=== PATIENT | female | born 1995 | race Caucasian/White ===

== ENCOUNTER 2017-02-02 17:29 | Emergency (ER) | payer MEDICAID, OTHER ==
[2017-01-01 22:00] VITALS: BMI 24.6
--- NOTE | 2017-02-02 20:12 | OBHP ---
Datetime: 02/02/2017 18:46 IP Adm Impression: , intrauterine IP Chief Complaint Other: dizziness, palpatations IP Admit Plan: Discharge home Admit Comment, IP Provider: 21 y/o F at 29 weeks gestation as per 25 weeks U/S presents with ED D 04/20 presents with a 3 month hx of episodic dizziness, palpitations, hot flashes, and lightheadedn ess that has occurring with more frequency up to 3-4x a day which prompted her to come in. At the mo ment, the patient denies any symptoms. Denies vaginal bleeding, contractions. Reports good move ment. PNC: Seeking care at [facility]. OBHx: 1st trimester SAB [employer] Hx: Medical HX: Denies Medications: None Allergies: NKDA Social: Denies smoking, alcohol, drugs Vitals: 108/61, 77, afebrile Physical Exam: General: NAD Cardiac: RRR, no murmrus Pulm: Clear to auscultation Abdomen: Gravid, NT Extremities: No swelling FHR: 145-150, moderate variability, accelrations, no decelerations No records to review Assessment _ Plan: IUP at 29 weeks gestation with episodes of presyncopy associated with prodrome for the past 3 agnes hs. Reassuring heart tracings and maternal vital signs stable. Likely vasovagal symptoms from d ehydration but patient will need a thorough work up outpatient to rule out other etiologies. Patient was encouraged to follow up and communicate symptoms with her OB at next appointment on 02/04. Patien t verbalized understanding. 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 Jorge: Patient evaluated independently and I agree with the above. Patient is a @ 29 wks, reports frequent episodes of near vaso-vagal like symptoms, no loss of consciousness, sy mptoms completely resolve, no CP, no SOB, no N/V, no diaphoresis, no abdominal pain, no VB, no leakin g, +FM, no ctxns. Patient has stable Vital signs in [place]. [id number] mod anderson, +accels, no decels. Reassu red patient that she appears clincially stable, pt needs to follow up with clinic this week, should b e evaluated as outpatient for vasovagal symptoms. All questions answered. Patient discharged Pelvic Type - PN: Adequate Extremities - PN: Normal Abdomen - PN: Normal Back - PN: Normal Breast - PN: Normal Lungs - PN: Normal Heart - PN: Normal Thyroid - PN: Normal Neurologic - PN: Normal HEENT - PN: Normal General - PN: Normal FHR - Baseline A Provider: 135 EGA AdmitDate IP: 29.0 IP Chief Complaint: Other NICHD Variability Prov Fetus A: Moderate 6-25bpm NICHD Accel Fetus A IP Provider: [id number] NICHD Decel Fetus A IP Provider: None Genitourinary Exam: Normal DTRs - PN: Normal
--- NOTE | 2017-02-02 20:12 | OBDCSUM ---
Datetime: 02/02/2017 18:21 Discharged to, Provider: Home Follow up at, Provider: [facility] Disch Instr Activity: Normal activity Disch Instr Diet: Regular Discharge Time: 02/02/2017 18:30 Follow up in weeks, Provider: As scheduled 02/04/17 Disch Referrals: None Discharge Diagnosis Prov Other: dizziness
[2017-02-02 22:55] VITALS: BP 104/69; PULSE 89; RESP 20; TEMP 98.7; O2SAT 100
== END 2017-02-02 18:30 | disposition home or self-care (01) ==
LOC: H.EROB2 17:29
DX: O26.93 Pregnancy related conditions, unspecified, third trimester (principal); R55 Syncope and collapse; Z3A.29 29 weeks gestation of pregnancy

== ENCOUNTER 2017-03-17 17:17 | Emergency (ER) | payer OTHER ==
[2017-03-17 18:11] VITALS: BMI 26.2
[2017-03-17 18:30] LABS: RBC URINE 1 /hpf (0-3); URINE BACTERIA RARE (<OCC); URINE BILIRUBIN NEGATIVE (NEGATIVE); URINE BLOOD NEGATIVE (NEGATIVE); URINE COLOR YELLOW (YELLOW); URINE GLUCOSE (UA) NEG (Normal); URINE KETONE NEGATIVE (NEGATIVE); URINE LEUKOCYTE ESTERASE NEG Leu/uL (Negative); URINE PROTEIN 30 mg/dL (NEGATIVE); URINE UROBILINOGEN 0.2-1.0 mg/dL (0.2-1.0); WBC URINE 2 /hpf (0-5)
[2017-03-17 19:19] VITALS: BP 104/58; PULSE 102; RESP 20; TEMP 98.4; O2SAT 99
== END 2017-03-18 06:47 | disposition left against medical advice (07) ==
LOC: H.EROB2 17:17 → H.ER 03-18 06:47
DX: O26.93 Pregnancy related conditions, unspecified, third trimester (principal); Z86.59 Personal history of other mental and behavioral disorders; Z3A.35 35 weeks gestation of pregnancy; T76.01XA Adult neglect or abandonment, suspected, initial encounter; M79.1 Myalgia; R50.9 Fever, unspecified; R39.9 Unspecified symptoms and signs involving the genitourinary system